=== PATIENT | female | born 1940 | race Caucasian/White ===

== ENCOUNTER → 2018-08-22 | Outpatient (CLI) | payer MEDICARE, BC ==
[2018-08-22 17:56] LABS: Albumin 4.2 g/dL (3.80-4.90); Albumin/Globulin Ratio 2.21 (1.60-3.17); Anion Gap 11.2 mmol/L (4.00-12.00); Calcium 9.3 mg/dL (8.7-10.3); Carbon Dioxide 24.8 mmol/L (21.6-31.8); Globulin 1.9 g/dL (1.6-3.3); Potassium 4.2 mmol/L (3.5-5.5); Total Bilirubin 0.5 mg/dL (0.2-1.2); Total Protein 6.1 g/dL (6.2-8.2)
[2018-08-22 17:57] LABS: LDL Cholesterol,Calculated 92.6 mg/dL (0.0-131.0); VLDL Calculation 17.4 mg/dL (5.00-40.00)
== END ==
LOC: LABWHC1 10:21
DX: I10 Essential (primary) hypertension (principal)
CPT/HCPCS: 36415; 80053; 80061

== ENCOUNTER → 2019-06-26 | Outpatient (CLI) | payer MEDICARE, BC ==
--- NOTE | 2019-06-26 13:23 | XR ---
EXAMINATION TYPE: XR Hip Complete RT DATE OF EXAM: 06/26/2019 COMPARISON: NONE HISTORY: 79-year-old female chronic pain, osteoarthritis TECHNIQUE: 2 views FINDINGS: Mild axial joint space narrowing. Mild marginal spurring. Some vascular calcifications are present. N o acute fracture, subluxation, or dislocation. IMPRESSION: Mild right hip OA. No acute osseous abnormality seen.
--- NOTE | 2019-06-26 13:25 | XR ---
EXAMINATION TYPE: XR knee complete RT DATE OF EXAM: 06/26/2019 COMPARISON: Postop radiographs 10/22/2015 HISTORY: 79-year-old female chronic pain, osteoarthritis TECHNIQUE: 3 views FINDINGS: Images show right knee total arthroplasty. Old distal femoral and proximal tibial components of the p rosthesis appear well seated without progressive fracture. Possible anterior soft tissue swelling. Qu adriceps tendon not well delineated. A joint effusion would be difficult to exclude. IMPRESSION: 1. Right knee total arthroplasty shows no periprosthetic fracture or loosening. 2. Anterior soft tissue swelling. Quadriceps tendon not well delineated, possibly due to position. Re commend clinical correlation to ensure integrity of the extensor mechanism. 3. Underlying knee joint effusion would be difficult to exclude. If concern for joint effusion, ultra sound can be considered.
== END | disposition home or self-care (01) ==
LOC: RADXRMAIN 12:12
DX: M79.89 Other specified soft tissue disorders (principal); M15.0 Primary generalized (osteo)arthritis; Z96.651 Presence of right artificial knee joint
CPT/HCPCS: 73502